=== PATIENT | female | born 1965 | race African-American/Black ===

== ENCOUNTER 2017-02-02 22:45 | Emergency (ER) | payer MEDICAID ==
[~2017-02-02] VITALS: Ht 170.2 cm; Wt 111.0 kg
[~2017-02-02 22:45] MED LIST: ARIP20TA2 PO; FURO-152 PO
[2017-02-03] MEDS ORDERED: IBUPROFEN 600MG TABLET PO ONE (04:45)
[2017-02-03 05:10] VITALS: BP 133/80
== END 2017-02-03 05:20 | disposition home or self-care (01) ==
LOC: ER 22:58
DX: M79.661 Pain in right lower leg (principal); M79.662 Pain in left lower leg; I10 Essential (primary) hypertension; G47.30 Sleep apnea, unspecified
CPT/HCPCS: 93970; 99284

== ENCOUNTER 2017-03-22 08:09 | Emergency (ER) | payer MEDICAID ==
[~2017-03-22] VITALS: Ht 170.2 cm; Wt 130.0 kg
[2017-03-22] MEDS ORDERED: KETOROLAC 60MG/2ML VIAL IM ONE (09:30)
[2017-03-22] MEDS ORDERED: HYDROCODONE/ACETAMINOPHEN 5/325MG TABLET PO ONE (09:45)
[2017-03-22] MEDS ORDERED: TETANUS, DIPHTHERIA, PERTUSSIS VAC/PF 0.5ML (>7YR OLD) IM ONE (09:45)
[2017-03-22] MEDS ORDERED: BACITRACIN ZINC OINT UDPKT TOP ONE (09:45)
[2017-03-22] MEDS ORDERED: LIDOCAINE HCL 1% 20ML VIAL (Pyxis) INJ MC ONE (09:45)
[2017-03-22 12:17] VITALS: BP 125/80
== END 2017-03-22 12:22 | disposition home or self-care (01) ==
LOC: ER 08:18
PROC: 0H90XZZ Drainage of Scalp Skin, External Approach (ICD-10-PCS; principal; 2017-03-22)
DX: L02.811 Cutaneous abscess of head [any part, except face] (principal); I10 Essential (primary) hypertension
CPT/HCPCS: 10060; 90471; 90715; 96372; 99284; J1885; J3490; Z7610

== ENCOUNTER 2018-09-09 21:09 | Emergency (ER) | payer MEDICAID ==
[~2018-09-09] VITALS: Ht 167.6 cm; Wt 121.3 kg
[2018-09-09 22:39] VITALS: BP 147/103
== END 2018-09-10 01:10 | disposition left against medical advice (07) ==
LOC: ER 21:09
DX: Z53.21 Procedure and treatment not carried out due to patient leaving prior to being seen by health care provider (principal); E11.9 Type 2 diabetes mellitus without complications